=== PATIENT | female | born 1940 | race Caucasian/White ===

== ENCOUNTER 2017-09-26 12:47 | Inpatient (IN) | payer OTHER ==
[~2017-09-26] VITALS: Ht 147.3 cm; Wt 58.8 kg
[2017-09-26] MEDS ORDERED: IPRATROPIUM BROMIDE 0.5 MG/2.5 ML NEBU NEB ONE (13:10)
[2017-09-26] MEDS ORDERED: ALBUTEROL SULFATE 2.5 MG/3 ML NEBU NEB ONE (13:15)
[2017-09-26] MEDS ORDERED: methylPREDNISolone SOD SUCC 40 MG/ML VIAL IV ONE (13:15)
[2017-09-26] MEDS ORDERED: IV NORMAL SALINE 500 ML IV ONE (13:15)
[2017-09-26] MEDS ORDERED: ALPR0.5T8 PO (13:43)
[2017-09-26] MEDS ORDERED: RIVA20TA PO (13:43)
[2017-09-26] MEDS ORDERED: NIFE60TA69 PO (13:43)
[2017-09-26] MEDS ORDERED: MECL12.582 PO (13:43)
[2017-09-26] MEDS ORDERED: [UNRECOGNIZED DRUG - CODE] PO (13:43)
[2017-09-26] MEDS ORDERED: MAGN400O6 PO (13:43)
[2017-09-26] MEDS ORDERED: OMEP20TA5 PO (13:43)
[2017-09-26] MEDS ORDERED: ALEN70TA45 PO (13:43)
[2017-09-26] MEDS ORDERED: PREG50CA PO (13:43)
[2017-09-26] MEDS ORDERED: SERT50TA PO (13:43)
[2017-09-26] MEDS ORDERED: ETAN50PE SQ (13:43)
[2017-09-26] MEDS ORDERED: BISA10SU12 RC (13:43)
[2017-09-26] MEDS ORDERED: OMEG1CAP76 PO (13:43)
[2017-09-26] MEDS ORDERED: DOCU-141 PO (13:43)
[2017-09-26] MEDS ORDERED: VITA1TAB20 PO (13:43)
[2017-09-26] MEDS ORDERED: LOSA100T3 PO (13:43)
[2017-09-26] MEDS ORDERED: AMIN30LI27 PO (13:43)
[2017-09-26] MEDS ORDERED: LIDO5JEL9 MM (13:43)
[2017-09-26] MEDS ORDERED: MINE133E RC (13:43)
[2017-09-26] MEDS ORDERED: SENN-167 PO (13:43)
[2017-09-26] MEDS ORDERED: METO25TA6 PO (13:43)
[2017-09-26] MEDS ORDERED: ACET325T53 PO (13:43)
[2017-09-26] MEDS ORDERED: CHOL100062 PO (13:43)
[2017-09-26] MEDS ORDERED: ATOR10TA PO (13:43)
[2017-09-26] MEDS ORDERED: PRED-170 PO (13:43)
[2017-09-26 13:58] LABS: ABG BASE EXCESS -1.2 mmol/L; ABG HCO3 22.6 mmol/L; ABG PCO2 35.2 mmHg (35.0-45.0); ABG PH 7.425 (7.350-7.450); ABG PO2 70.5 mmHg (75.0-100.0); ABG SITE RIGHT RADIAL; ABG TOTAL HEMOGLOBIN 14.8 G/dL (12.0-16.0); COHb 2.1 % (0.5-1.5); MetHb 0.4 % (0.0-1.5); VENT MODE room air
[2017-09-26 14:01] LABS: BASOPHILS % (AUTO) 0.4 % (0.0-2.0); EOSINOPHILS % (AUTO) 0.4 % (0.0-7.0); HEMATOCRIT 42.8 % (31.2-41.9); HEMOGLOBIN 14.4 g/dL (10.9-14.3); LYMPHOCYTES % (AUTO) 14.7 % (20.5-51.5); MEAN CORPUSCULAR HEMOGLOBIN 28.7 uug (24.7-32.8); MEAN CORPUSCULAR HGB CONC 34 g/dL (32.3-35.6); MEAN CORPUSCULAR VOLUME 85.4 fL (75.5-95.3); MONOCYTES # (AUTO) 0.6 K/uL (2.0-10.0); MONOCYTES % (AUTO) 8.2 % (0.0-11.0); NEUTROPHILS # (AUTO) 5.4 K/uL (1.8-8.9); NEUTROPHILS % (AUTO) 76.3 % (38.5-71.5); PLATELET COUNT (AUTO) 115 K/uL (179-408); RED BLOOD CELL COUNT(AUTO) 5.01 MIL/uL (3.63-4.92); WHITE BLOOD COUNT (AUTO) 7.1 K/uL (3.8-11.8)
[2017-09-26] MEDS ORDERED: ALBUTEROL SULFATE 2.5 MG/ 0.5 ML NEBU ONE (14:03)
[2017-09-26] MEDS ORDERED: IPRATROPIUM BROMIDE 0.5 MG/2.5 ML NEBU ONE (14:03)
[2017-09-26] MEDS ORDERED: methylPREDNISolone SOD SUCC 40 MG/ML VIAL ONE ×2 (14:09→14:12)
[2017-09-26 14:12] LABS: CARBON DIOXIDE 29 mmol/L (21-32); CHLORIDE 107 mmol/L (98-107); CREATININE 0.7 mg/dL (0.6-1.3); GLUCOSE 96 mg/dL (74-106); POTASSIUM 3.6 mmol/L (3.5-5.1); UREA NITROGEN, BLOOD 22 mg/dL (7-18)
[2017-09-26 14:18] LABS: ALANINE AMINOTRANSFERASE 23 U/L (14-59); ALKALINE PHOSPHATASE 116 U/L (50-136); ASPARTATE AMINOTRANSFERASE 22 U/L (15-37); BILIRUBIN,TOTAL 0.4 mg/dL (0.2-1.0); TOTAL PROTEIN, SERUM 6.7 g/dL (6.4-8.2)
--- NOTE | 2017-09-26 15:00 | NUR ---
Received patient from ER via gurney, Alert and oriented to self. on O2 4lpm via NC, well tolerated. with Left forearm IV access #22, intact and patent. No acute distress noted. Routine All nursing admission assessments done. Left side weakness noted. Skin intact, although has multiple discoloration on BLE. No complaints of pain and discomfort at this time. All comfort measures provided. Will endorse to incoming shift.
--- NOTE | 2017-09-26 15:03 | NUR ---
[facility] COLLECTED AND SENT TO LAB, BELONGING LIST COMPLETED.
[2017-09-26] MEDS ORDERED: HYDROCODONE/APAP 5-325MG TABLET PO ONE (16:01)
[2017-09-26] MEDS ORDERED: DEXAMETHASONE SOD PHOSPHATE 4 MG INJ IM ONE (16:15)
[2017-09-26 16:20] VITALS: BP 162/90
[2017-09-26] MEDS ORDERED: ALPRAZOLAM 0.5 MG TABLET PO PRN (17:15)
[2017-09-26] MEDS ORDERED: ACETAMINOPHEN 325 MG TABLET PO PRN ×2 (17:15→17:30)
[2017-09-26] MEDS ORDERED: MINERAL OIL FLEET ENEMA 133 ML BOTTLE RC PRN (17:15)
[2017-09-26] MEDS ORDERED: ONDANSETRON 4 MG/2 ML VIAL IV PRN (17:30)
[2017-09-26] MEDS ORDERED: HYDROCODONE/APAP 5-325MG TABLET PO PRN (17:30)
[2017-09-26] MEDS ORDERED: Z GUARD REMEDY PASTE 57 GM TUBE TOP PRN (17:30)
[2017-09-26] MEDS ORDERED: ZOLPIDEM 5 MG TABLET PO PRN (17:30)
[2017-09-26] MEDS ORDERED: MAGNESIUM HYDROXIDE 30 ML LIQUID UDC PO PRN (17:30)
[2017-09-26] MEDS: IV 1/2NS 1000 ML 1,000 ML IV PRN (18:17)
[2017-09-26 19:00] VITALS: BP 156/83
--- NOTE | 2017-09-26 19:30 | NUR ---
RECEIVED PT IN BED, AWAKE. A/OX2. CITIZEN OF [place] SPEAKING, ABLE TO MAKE NEEDS KNOWN. V/S STABLE. IN NO ACUTE DISTRESS. NO C/O PAIN AT THIS TIME. IVF INFUSING. ON 4L NC, TOLERATING WELL. SAFETY MEASURES IMPLEMENTED. CALL LIGHT WITHIN REACH.
[2017-09-26] MEDS: SENNOSIDES 1 TABLET PO SCH (21:50)
[2017-09-26] MEDS: OMEGA-3 FATTY ACIDS/FISH OIL CAPSULE PO SCH (21:50)
[2017-09-26] MEDS: ATORVASTATIN 10 MG TABLET PO SCH (21:50)
[2017-09-27 04:00] VITALS: BP 158/75
--- NOTE | 2017-09-27 05:45 | NUR ---
END OF SHIFT NOTES. PT SLEPT WELL THROUGHOUT SHIFT. IN STABLE CONDITION. IVF INFUSING. CONT ON 4L NC. NO C/O OF SOB. HOB ELEVATED. ALL NEEDS ATTENDED. SAFETY MAINTAINED. CALL LIGHT WITHIN REACH.
[2017-09-27] MEDS: PANTOPRAZOLE SODIUM 40 MG TABLET.DR PO SCH (06:03)
[2017-09-27 06:27] LABS: BASOPHILS % (AUTO) 0.4 % (0.0-2.0); HEMATOCRIT 40.2 % (31.2-41.9); HEMOGLOBIN 13.3 g/dL (10.9-14.3); LYMPHOCYTES # (AUTO) 1.1 K/uL (20.0-40.0); LYMPHOCYTES % (AUTO) 15.3 % (20.5-51.5); MEAN CORPUSCULAR HEMOGLOBIN 28.3 uug (24.7-32.8); MEAN CORPUSCULAR HGB CONC 33 g/dL (32.3-35.6); MEAN CORPUSCULAR VOLUME 85.6 fL (75.5-95.3); MONOCYTES # (AUTO) 0.6 K/uL (2.0-10.0); MONOCYTES % (AUTO) 8.4 % (0.0-11.0); NEUTROPHILS # (AUTO) 5.4 K/uL (1.8-8.9); NEUTROPHILS % (AUTO) 75.9 % (38.5-71.5); PLATELET COUNT (AUTO) 115 K/uL (179-408); RED BLOOD CELL COUNT(AUTO) 4.69 MIL/uL (3.63-4.92); WHITE BLOOD COUNT (AUTO) 7.1 K/uL (3.8-11.8)
[2017-09-27 06:42] LABS: CARBON DIOXIDE 24 mmol/L (21-32); CHLORIDE 108 mmol/L (98-107); CHOLESTEROL 155 mg/dL (<200); CREATININE 0.5 mg/dL (0.6-1.3); GLUCOSE 90 mg/dL (74-106); HDL CHOLESTEROL 57 mg/dL (40-60); MAGNESIUM 1.9 mg/dL (1.8-2.4); PHOSPHOROUS 4.2 mg/dL (2.5-4.9); POTASSIUM 3.6 mmol/L (3.5-5.1); TRIGLYCERIDES 82 MG/DL (30-150); UREA NITROGEN, BLOOD 22 mg/dL (7-18)
[2017-09-27] MEDS: OMEGA-3 FATTY ACIDS/FISH OIL CAPSULE PO SCH ×2 (08:41→20:23)
[2017-09-27] MEDS: SERTRALINE HCL 50 MG TABLET PO SCH (08:41)
[2017-09-27] MEDS: PSYLLIUM SEED PACKET PO SCH ×2 (08:41→17:00)
[2017-09-27] MEDS: DOCUSATE SODIUM 100 MG CAPSULE PO SCH ×2 (08:41→17:00)
[2017-09-27] MEDS: MECLIZINE HCL 12.5 MG TABLET PO SCH (08:42)
[2017-09-27] MEDS: METOPROLOL TARTRATE 25 MG TABLET PO SCH ×2 (08:42→20:23)
[2017-09-27] MEDS: NIFEdipine XL 60 MG TABSR PO SCH (08:42)
[2017-09-27] MEDS: PREGABALIN 50 MG CAPSULE PO SCH ×3 (08:42→17:41)
[2017-09-27] MEDS: LOSARTAN POTASSIUM 50 MG TABLET PO SCH (08:42)
[2017-09-27] MEDS: predniSONE 5 MG TABLET PO SCH (08:42)
[2017-09-27] MEDS: PROTEIN SUPPLEMENT (PROSTAT) 30 ML LIQUID PO SCH ×2 (08:43→17:41)
[2017-09-27] MEDS: IV 1/2NS 1000 ML 1,000 ML IV PRN (08:53)
[2017-09-27] MEDS ORDERED: Medication Not On Formulary EA (Omeprazole 20 MG) PO SCH (09:00)
[2017-09-27] MEDS ORDERED: Medication Not On Formulary EA (Amino Acids/Protein Hydrolys (Pro-Stat Sugar Free Liquid PO SCH (09:00)
[2017-09-27] MEDS ORDERED: PSYLLIUM HUSK PO SCH (09:00)
[2017-09-27] MEDS ORDERED: ASPARTAME PO SCH (09:00)
[2017-09-27 10:54] VITALS: BP 178/79
[2017-09-27] MEDS: CHOLECALCIFEROL 1,000 UNIT TABLET PO SCH (11:59)
[2017-09-27] MEDS: VITAMIN B COMPLEX 1 TABLET PO SCH (11:59)
[2017-09-27] MEDS ORDERED: MAGNESIUM HYDROXIDE 30 ML LIQUID UDC PO PRN (12:15)
[2017-09-27] MEDS ORDERED: BISACODYL 10 MG SUPP.RECT RC PRN (12:15)
[2017-09-27] MEDS ORDERED: LIDOCAINE VISCUS 2% 15 ML UDC MM PRN (12:30)
[2017-09-27 15:01] VITALS: BP 118/65
[2017-09-27 15:12] VITALS: BP 132/63
--- NOTE | 2017-09-27 17:00 | NUR ---
Metamucil and colace was held to day due to current BM. Will continue monitoring
[2017-09-27] MEDS: RIVAROXABAN 10 MG TABLET PO SCH (17:47)
--- NOTE | 2017-09-27 18:43 | NUR ---
Patient will be sleeping throughout the day. No s/s of distress or pain. Medication was administered as ordered. BP was controlled. Three BM during the day. Safety and comfort was provided during the day by the staff.
[2017-09-27 19:00] VITALS: BP 129/73
--- NOTE | 2017-09-27 19:30 | NUR ---
Received patient laying comfortably in bed. No acute distress noted. Family at bedside. Patient is on O2 2L NC. A&O x 3 but forgetful. Family at bedside. Noted raised red bump pm the left eye. Korean speaking. Safety initiated. Call light within reach. Will continue to monitor.
[2017-09-27] MEDS: ATORVASTATIN 10 MG TABLET PO SCH (20:23)
[2017-09-27] MEDS: SENNOSIDES 1 TABLET PO SCH (20:24)
[2017-09-28 04:00] VITALS: BP 136/70
[2017-09-28] MEDS: IV 1/2NS 1000 ML 1,000 ML IV PRN ×2 (05:20→18:49)
--- NOTE | 2017-09-28 05:30 | NUR ---
No changes t/o shift. Slept t/o the night. No acute distress noted. Urinating well. Safety and comfort measures maintained t/o shift. All meds given as ordered. All needs met.
[2017-09-28] MEDS: PANTOPRAZOLE SODIUM 40 MG TABLET.DR PO SCH ×2 (06:00→08:24)
[2017-09-28] MEDS: CHOLECALCIFEROL 1,000 UNIT TABLET PO SCH (08:23)
[2017-09-28] MEDS: LOSARTAN POTASSIUM 50 MG TABLET PO SCH (08:23)
[2017-09-28] MEDS: PREGABALIN 50 MG CAPSULE PO SCH ×3 (08:24→17:41)
[2017-09-28] MEDS: SERTRALINE HCL 50 MG TABLET PO SCH (08:24)
[2017-09-28] MEDS: DOCUSATE SODIUM 100 MG CAPSULE PO SCH ×2 (08:24→17:41)
[2017-09-28] MEDS: predniSONE 5 MG TABLET PO SCH (08:24)
[2017-09-28] MEDS: OMEGA-3 FATTY ACIDS/FISH OIL CAPSULE PO SCH ×2 (08:24→20:56)
[2017-09-28] MEDS: NIFEdipine XL 60 MG TABSR PO SCH (08:24)
[2017-09-28] MEDS: VITAMIN B COMPLEX 1 TABLET PO SCH (08:33)
[2017-09-28] MEDS: MECLIZINE HCL 12.5 MG TABLET PO SCH (08:33)
[2017-09-28] MEDS: METOPROLOL TARTRATE 25 MG TABLET PO SCH ×2 (08:35→20:57)
[2017-09-28] MEDS: PSYLLIUM SEED PACKET PO SCH ×2 (08:43→17:42)
[2017-09-28] MEDS: PROTEIN SUPPLEMENT (PROSTAT) 30 ML LIQUID PO SCH ×2 (08:43→17:42)
--- NOTE | 2017-09-28 09:00 | NUR ---
Received patient asleep on bed, A and O x 2 with bouts of confusion. Is faroese speaking but can understand some yoruba. with peripheral IV on the left forearm #22, intact and patent, 0.45% NS currently ongoing, well tolerated. No acute distress noted. No complaints of pain at this time. All comfort measures provided. All safety and fall precautions observed. Will continue to monitor closely.
[2017-09-28 11:25] VITALS: BP 131/60
[2017-09-28 15:30] VITALS: BP 110/61
[2017-09-28] MEDS: RIVAROXABAN 10 MG TABLET PO SCH (17:41)
[2017-09-28 20:00] VITALS: BP 118/61
--- NOTE | 2017-09-28 20:15 | NUR ---
pt's on bed rest comfortably,unlabored breathing noted.On O2 NC 3LPM;O2 sat's normal.assisted for pm care on bed with maximal assistance;pt's cooperative.maintained IVF as order.bed alarm's on.safety render.
[2017-09-28] MEDS: ATORVASTATIN 10 MG TABLET PO SCH (20:57)
[2017-09-28] MEDS: SENNOSIDES 1 TABLET PO SCH (21:02)
[2017-09-29 06:00] VITALS: BP 120/62
[2017-09-29] MEDS: PANTOPRAZOLE SODIUM 40 MG TABLET.DR PO SCH (06:27)
--- NOTE | 2017-09-29 06:30 | NUR ---
Pt slept well at night time;about 9 hours,cooperative with assistance.no distress in the shift,pt remained free from injury,tolerated well with assistance and treatment noted.bed alarm's on.continued monitoring to pt.
--- NOTE | 2017-09-29 09:30 | NUR ---
REPORT RECEIVED FROM ZAHIDA YO.PT REMAINS AWAKE,ALERT.NO S/S OF PAIN,DISCOMFORT.RESPIRATION EVEN,UNLABORED.NO SOB NOTED.SWALLOW MEDICATION.NO S/S OF ASPIRATION.WILL CONTINUE TO MONITOR.
[2017-09-29 10:00] VITALS: BP 122/62
[2017-09-29] MEDS: PSYLLIUM SEED PACKET PO SCH ×2 (10:15→17:00)
[2017-09-29] MEDS: PROTEIN SUPPLEMENT (PROSTAT) 30 ML LIQUID PO SCH ×2 (10:15→17:52)
[2017-09-29] MEDS: DOCUSATE SODIUM 100 MG CAPSULE PO SCH ×2 (10:15→17:00)
[2017-09-29] MEDS: OMEGA-3 FATTY ACIDS/FISH OIL CAPSULE PO SCH ×2 (10:16→21:56)
[2017-09-29] MEDS: predniSONE 5 MG TABLET PO SCH (10:16)
[2017-09-29] MEDS: PREGABALIN 50 MG CAPSULE PO SCH ×3 (10:16→17:49)
[2017-09-29] MEDS: SERTRALINE HCL 50 MG TABLET PO SCH (10:17)
[2017-09-29] MEDS: CHOLECALCIFEROL 1,000 UNIT TABLET PO SCH (10:17)
[2017-09-29] MEDS: MECLIZINE HCL 12.5 MG TABLET PO SCH (10:17)
[2017-09-29] MEDS: LOSARTAN POTASSIUM 50 MG TABLET PO SCH (10:24)
[2017-09-29] MEDS: NIFEdipine XL 60 MG TABSR PO SCH (10:24)
[2017-09-29] MEDS: METOPROLOL TARTRATE 25 MG TABLET PO SCH ×2 (10:25→21:56)
[2017-09-29] MEDS: VITAMIN B COMPLEX 1 TABLET PO SCH (10:25)
[2017-09-29 16:00] VITALS: BP 134/67
[2017-09-29] MEDS: RIVAROXABAN 10 MG TABLET PO SCH (17:51)
--- NOTE | 2017-09-29 18:43 | NUR ---
Pt remains awake,alert.Latvian speaking.No s/s of pain,discomfort.Will continue to monitor.
--- NOTE | 2017-09-29 19:30 | NUR ---
PT RECEIVED IN BED, AWAKE. A/OX2. [place] SPEAKING, BUT ABLE TO MAKE NEEDS KNOWN. V/S STABLE. IN NO ACUTE DISTRESS. NO C/O PAIN AT THIS TIME. IVF INFUSING. ON 2L NC, TOLERATING WELL. SAFETY MEASURES IMPLEMENTED. BED ALARM SET. CALL LIGHT WITHIN REACH.
[2017-09-29 20:00] VITALS: BP 116/61
[2017-09-29] MEDS: ATORVASTATIN 10 MG TABLET PO SCH (21:56)
[2017-09-29] MEDS: SENNOSIDES 1 TABLET PO SCH (21:56)
--- NOTE | 2017-09-30 05:45 | NUR ---
END OF SHIFT NOTES. PT SLEPT WELL THROUGHOUT SHIFT. IN STABLE CONDITION. IVF INFUSING. ON 2L NC TOLERATING WELL. HOB ELEVATED. ALL NEEDS ATTENDED. SAFETY MAINTAINED. CALL LIGHT WITHIN REACH.
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
[2017-09-30] MEDS: PANTOPRAZOLE SODIUM 40 MG TABLET.DR PO SCH (06:03)
[2017-09-30 06:16] VITALS: BP 138/68
[2017-09-30] MEDS: PROTEIN SUPPLEMENT (PROSTAT) 30 ML LIQUID PO SCH (08:48)
[2017-09-30] MEDS: CHOLECALCIFEROL 1,000 UNIT TABLET PO SCH (08:49)
[2017-09-30] MEDS: MECLIZINE HCL 12.5 MG TABLET PO SCH (08:49)
[2017-09-30] MEDS: SERTRALINE HCL 50 MG TABLET PO SCH (08:49)
[2017-09-30] MEDS: predniSONE 5 MG TABLET PO SCH (08:49)
[2017-09-30] MEDS: OMEGA-3 FATTY ACIDS/FISH OIL CAPSULE PO SCH (08:49)
[2017-09-30] MEDS: PREGABALIN 50 MG CAPSULE PO SCH ×2 (08:49→12:15)
[2017-09-30] MEDS: DOCUSATE SODIUM 100 MG CAPSULE PO SCH (08:49)
[2017-09-30] MEDS: PSYLLIUM SEED PACKET PO SCH (08:50)
[2017-09-30] MEDS: LOSARTAN POTASSIUM 50 MG TABLET PO SCH (08:52)
[2017-09-30] MEDS: METOPROLOL TARTRATE 25 MG TABLET PO SCH (08:52)
[2017-09-30] MEDS: NIFEdipine XL 60 MG TABSR PO SCH (08:52)
--- NOTE | 2017-09-30 09:08 | NUR ---
NEW ORDERS NOTED TO DISCHARGE PATIENT BACK TO [facility] TODAY AND NOTED.
[2017-09-30] MEDS: VITAMIN B COMPLEX 1 TABLET PO SCH (09:30)
[2017-09-30 11:30] VITALS: BP 117/61
--- NOTE | 2017-09-30 12:10 | NUR ---
AMBULANCE HERE TO PICK PATIENT UP CALLED THE [facility] 2 TIMES TO GIVE REPORT BUT THE BANK CASHIER THAT ANSWERED THE PHONE STATED BOTH TIMES THAT THE NURSE WAS TOO BUSY TO COME TO THE PHONE.
--- NOTE | 2017-09-30 12:22 | NUR ---
PATIENT DISCHARGE TO [facility] WITH DISCHARGE INSTRUCTIONS AND REPORT GIVEN TO THE AMBULANCE TECHS FOR CONTINUING CARE PATIENT WAS DISCHARGED WITH ALL HER PERSONAL BELONGINGS INCLUDING HER W/CHAIR.
--- NOTE | 2017-09-30 13:10 | NUR ---
CALLED PATIENTS DAUGHTER CANDELARIA QUINTEROS AND LEFT HER A MESSAGE THAT PATIENT IS BEING DISCHARGED BACK TO THE [facility] TODAY
[2017-10-03] MEDS ORDERED: ALENDRONATE SODIUM 70 MG TABLET PO SCH (06:30)
== END 2017-09-30 12:22 | DRG 917 ==
LOC: ER 12:47 → TELE 16:03 → MED 17:20
PROVIDERS: ADMIT Internal Medicine; ATTEND Internal Medicine
DX: T59.811A Toxic effect of smoke, accidental (unintentional), initial encounter (principal); J96.01 Acute respiratory failure with hypoxia; E86.0 Dehydration; D75.1 Secondary polycythemia; I69.854 Hemiplegia and hemiparesis following other cerebrovascular disease affecting left non-dominant side; M06.9 Rheumatoid arthritis, unspecified; E78.5 Hyperlipidemia, unspecified; F32.9 Major depressive disorder, single episode, unspecified; K21.9 Gastro-esophageal reflux disease without esophagitis; Y92.129 Unspecified place in nursing home as the place of occurrence of the external cause; I10 Essential (primary) hypertension; F41.9 Anxiety disorder, unspecified; M81.0 Age-related osteoporosis without current pathological fracture; I73.9 Peripheral vascular disease, unspecified
CPT/HCPCS: 36415; 36600; 71010; 83735; 84100; 85025; 93005; A4663; J2920; J3490; J3590; J7040; J7512; J8597